=== PATIENT | male | born 2000 | race Caucasian/White ===

== ENCOUNTER 2024-07-07 19:38 | Emergency (ER) | payer SELFPAY ==
[~2024-07-07] VITALS: Ht 167.6 cm; Wt 98.0 kg
[2024-07-07 20:04] VITALS: O2SAT 100
[2024-07-07 20:06] VITALS: BP 109/65; PULSE 93; RESP 18; TEMP 97.9; O2SAT 98
== END 2024-07-07 20:23 | disposition home or self-care (01) ==
LOC: ER 19:38
DX: R45.1 Restlessness and agitation (principal); Z77.21 Contact with and (suspected) exposure to potentially hazardous body fluids
CPT/HCPCS: 99281